=== PATIENT | male | born 1995 | race Hispanic/Latino ===

== ENCOUNTER 2019-09-01 14:50 | Emergency (ER) | payer SELFPAY ==
[2019-09-01] MEDS ORDERED: Dexamethasone 10 MG/ML VIAL ONE (16:29)
--- NOTE | 2019-09-01 17:10 | RAD ---
TWO VIEWS OF THE CHEST: 09/01/19 COMPARISON: None. HISTORY: Flu-like symptoms with cough and fever. FINDINGS: Two views of the chest show normal sized cardiomediastinal silhouette. There is no evidence of consol idation, mass, or pleural effusion. The bones are unremarkable. IMPRESSION: No evidence of acute cardiopulmonary disease. POS: C
== END 2019-09-01 17:20 | disposition home or self-care (01) ==
LOC: ERS 14:50
DX: J11.1 Influenza due to unidentified influenza virus with other respiratory manifestations (principal); F17.210 Nicotine dependence, cigarettes, uncomplicated
CPT/HCPCS: 71046; 87081; 87430; 87804; J1100

== ENCOUNTER → 2022-03-04 | Emergency (ER) | payer SELFPAY | LOC: ERS 20:43 | DX: Z53.21 Procedure and treatment not carried out due to patient leaving prior to being seen by health care provider (principal) ==

== ENCOUNTER 2022-07-13 13:20 | Emergency (ER) | payer SELFPAY ==
[2022-07-13] MEDS ORDERED: Ketorolac Tromethamine 30 MG/ML VIAL ONE (13:39)
[2022-07-13 14:31] LABS: SARS-CoV-2 NAA Rapid Test Not Detected (NotDetected)
== END 2022-07-13 15:32 | disposition home or self-care (01) ==
LOC: ERS 13:20
DX: J06.9 Acute upper respiratory infection, unspecified (principal); F17.210 Nicotine dependence, cigarettes, uncomplicated; Z20.822 Contact with and (suspected) exposure to COVID-19
CPT/HCPCS: 96372; 99283; J1885